=== PATIENT | male | born 1975 | race Asian ===

== ENCOUNTER 2018-12-28 00:13 | Emergency (ER) | payer SELFPAY ==
[~2018-12-28] VITALS: Ht 167.6 cm; Wt 72.6 kg
[2018-12-28 00:55] VITALS: Ht 167.6 cm; Wt 72.6 kg
[2018-12-28 03:46] VITALS: BP 136/99
== END 2018-12-28 03:46 | disposition home or self-care (01) ==
LOC: ED 00:13
DX: S61.210A Laceration without foreign body of right index finger without damage to nail, initial encounter (principal); W26.0XXA Contact with knife, initial encounter; Y93.89 Activity, other specified; Y92.89 Other specified places as the place of occurrence of the external cause; Y99.8 Other external cause status
CPT/HCPCS: 90715; J2001